=== PATIENT | female | born 1980 | race Caucasian/White ===

== ENCOUNTER 2019-05-17 09:08 | Observation (INO) ==
[~2019-05-17 09:08] MED LIST: CefOXitin Inj 2 GM in Sodium Chloride 0.9% 100 ML IV ONE; KETAMINE 100 MG/1 ML - 5 ML ONE; LIDOCAINE MPF 2% - 5 ML (20 MG/1 ML) ONE; LIDOCAINE W/ SODIUM BICARB 0.5 ML SYR ONE; LIDOCAINE W/ SODIUM BICARB 0.5 ML SYR SUBD PRN; Lactated Ringers 1,000 ML PRIMARY IV ONE; MIDAZOLAM HCL 2 MG/2 ML VIAL ONE; Nasal Sanitizer POPSWAB ampule 3 AMP (Nozin) PREOP DOSE ENOS SCH; PROPOFOL 10 MG/1 ML (200 MG/20 ML) VIAL IV ONE; ROCURONIUM 10 MG/1 ML - 5 ML VIAL IVP ONE; SUFENTANIL 50 MCG/1 ML ONE; Sodium Chloride 0.9% 100 ML IV ONE; Sodium Chloride 0.9% vial 10 ML ONE
[2019-05-17] MEDS: Lactated Ringers 1,000 ML PRIMARY IV SCH ×3 (09:42→16:36)
[2019-05-17 09:44] LABS: BILIRUBIN,URINE NEGATIVE (NEG); CLARITY,URINE Slightly Cloudy (CLEAR); COLOR,URINE YELLOW (Y); GLUCOSE, URINE (UA) NEGATIVE (NEG); PH,URINE 5.5 (5.0-8.5); PROTEIN,URINE NEGATIVE (NEG); UROBILINOGEN,URINE 0.2 EU/dL (0.2)
[2019-05-17 09:45] LABS: OCCULT BLOOD,URINE TRACE (NEG)
[2019-05-17 09:46] LABS: URINE SAMPLE TYPE CLEAN CATCH URINE
[2019-05-17 09:58] LABS: Hematocrit [HCT] 45.4 % (37.0-47.0); Hemoglobin [HGB] 15.2 g/dL (12.0-16.0)
[2019-05-17] MEDS ORDERED: IPRATROPIUM/ALBUTEROL SULFATE 3 ML NEB NEB ONE (10:12)
[2019-05-17] MEDS ORDERED: SCOPOLAMINE HYDROBROMIDE 1.5 MG - 1 EACH PATCH TRANSDERM ONE ×2 (10:15→10:19)
[2019-05-17] MEDS ORDERED: LIDOCAINE HCL 2 % 10 ML JELLY URO-JECT TOPICAL ONE (10:22)
[2019-05-17] MEDS ORDERED: BUPIVACAINE 0.5% W/ EPI - 10 ML VIAL ONE (10:22)
[2019-05-17] MEDS ORDERED: Acetaminophen 1000mg Inj 1,000 MG/100 ML VIAL IV ONE (10:26)
[2019-05-17] MEDS ORDERED: DEXAMETHASONE PF 10 MG/1 ML VIAL ONE (10:49)
[2019-05-17] MEDS ORDERED: LIDOCAINE HCL 2 % 10 ML JELLY URO-JECT TOPICAL PRN ×3 (11:14→14:48)
[2019-05-17] MEDS ORDERED: ONDANSETRON 4 MG/2 ML VIAL ONE ×2 (11:18→12:20)
[2019-05-17] MEDS ORDERED: Opium-Belladonna 60-16.2mg 1 EACH SUPP.RECT RECTAL ONE ×2 (11:35→11:50)
[2019-05-17] MEDS ORDERED: Lactated Ringers 1,000 ML PRIMARY IV ONE (11:51)
[2019-05-17] MEDS ORDERED: KETOROLAC 30 MG/1 ML VIAL ONE (12:20)
[2019-05-17] MEDS ORDERED: Ondansetron ODT Tab 8 MG TAB PO PRN (12:21)
[2019-05-17] MEDS ORDERED: IBUPROFEN 800 MG TABLET PO PRN (12:21)
[2019-05-17] MEDS ORDERED: oxyCODONE-ACETAMINOPHEN 5-325 TAB PO PRN (12:21)
[2019-05-17] MEDS ORDERED: NEOSTIGMINE 1 MG/1 ML - 10 ML ONE ×2 (12:23)
[2019-05-17] MEDS ORDERED: GLYCOPYRROLATE 0.2 MG/1 ML VIAL ONE (12:23)
[2019-05-17] MEDS ORDERED: LIDOCAINE MPF 2% - 5 ML (20 MG/1 ML) ONE (12:33)
[2019-05-17] MEDS: HYDROmorphone 2 MG/1 ML IVP PRN ×3 (12:59→14:51)
[2019-05-17] MEDS ORDERED: HYDROmorphone 2 MG/1 ML ONE ×2 (12:59→14:53)
[2019-05-17] MEDS ORDERED: oxyCODONE-ACETAMINOPHEN 5-325 TAB PO ONE (13:21)
[2019-05-17] MEDS ORDERED: DIAZEPAM 5 MG TABLET PO ONE (14:33)
[2019-05-17] MEDS ORDERED: DIAZEPAM 5 MG TABLET ONE (14:35)
[2019-05-17] MEDS ORDERED: HYDROmorphone 2 MG/1 ML IVP PRN (16:17)
[2019-05-17] MEDS: KETOROLAC 15 MG/1 ML VIAL IVP SCH ×2 (16:55→23:32)
[2019-05-17] MEDS ORDERED: DOCUSATE 100 MG CAPSULE PO SCH (21:00)
[2019-05-18] MEDS: Lactated Ringers 1,000 ML PRIMARY IV SCH (00:17)
[2019-05-18] MEDS: KETOROLAC 15 MG/1 ML VIAL IVP SCH ×3 (05:05→10:54)
[2019-05-18 07:34] VITALS: BP 128/70; RESP 18; TEMP 98.4; O2SAT 97
== END 2019-05-18 11:13 | disposition home or self-care (01) ==
LOC: OR 09:08 → MED/SURG 09:08 → OPS 09:14
PROVIDERS: ADMIT Obstetrics & Gynecology; ATTEND Obstetrics & Gynecology